=== PATIENT | male | born 1945 | race Caucasian/White ===

== ENCOUNTER 2018-07-31 00:14 | Day surgery (SDC) | payer MEDICARE, OTHER ==
--- NOTE | 2018-07-30 14:48 | HISTORY AND PHYSICAL ---
DATE OF ADMISSION: July 31, 2018 CHIEF COMPLAINT Right inguinal hernia. HISTORY OF PRESENT ILLNESS Patient is a 73-year-old white male who presented to the Urology Clinic on the 25 of June with a several month history of right groin discomfort and swelling. Patient states the pain and swelling kind of comes and goes throughout the day, but is especially bothersome after physical activity. He denies any change in lower urinary tract symptoms, chronic cough, or constipation. Of note, he did have a left inguinal hernia repair in 2000 with a high ligation of sac in a Bassini-type repair. In 1986, he had a right testis biopsy for adenoid tumor. Physical exam in the clinic revealed a normal urinalysis with a postvoid residual of 51. flow rate 20 mL per second. He had a right inguinal hernia which appeared to be direct in nature. Options were discussed, and he has elected to undergo operative repair. Specific risks of repair were discussed including recurrence of a hernia, hydrocele formation, chronic numbness or discomfort at surgical site, damage to scar formation or adjacent structures including nerve, bowel, vessels, and other structures, as well as possible hematoma formation in the incision site or scrotum. PAST MEDICAL HISTORY 1. Coronary artery disease, status post cardiac stenting. Patient has recently seen Dr. Busby in [place], his estimating manager, and has been given clearance for the upcoming procedure. 2. Hypertension. 3. Hypercholesterolemia. 4. Gastroesophageal reflux disease. 5. Degenerative joint disease. 6. ED. PAST SURGICAL HISTORY 1. Tonsillectomy. 2. Cardiac stenting. 3. Laminectomy in the C- and L-spine. 4. Melanoma excision. 5. Left inguinal hernia repair. 6. Right testis biopsy. 7. Left shoulder repair. SOCIAL HISTORY Patient denies illicit drug use or tobacco use. He lives in [place], [place]. He is . ALLERGIES STATINS, CoA REDUCTASE INHIBITOR TYPE. CURRENT MEDICATIONS 1. Amlodipine. 2. Aspirin. 3. Nexium. 4. Losartan. 5. Bioflex tablet. 6. Atorvastatin. REVIEW OF SYSTEMS Patient denies chest pain, productive cough, fever, chills, nausea, vomiting, change in bowel habits, bleeding disorder, chronic headaches, liver disease, or dyspnea on exertion. PHYSICAL EXAMINATION GENERAL: Patient is a well-developed, well-nourished white male in no acute distress. HEENT: Normocephalic, atraumatic. CHEST: Clear to auscultation bilaterally. CARDIOVASCULAR: Regular rate and rhythm. ABDOMEN: Soft, nontender. No masses are palpated. GENITOURINARY: Deferred to the OR. EXTREMITIES: Without clubbing, cyanosis, or edema. NEUROLOGIC: Nonfocal. IMPRESSION A 73-year-old white male with a right inguinal hernia. PLAN We will perform right inguinal hernia repair. [facility]
[~2018-07-31] VITALS: Ht 172.7 cm; Wt 83.0 kg
[2018-07-31] VITALS (8 sets, daily range): BP systolic 107–143; BP diastolic 58–81
[~2018-07-31 00:14] MED LIST: AMLO-127 PO; ASPI-1471 PO; ATOR10TA65 PO; ESOM40CA42 PO; LOSA50TA80 PO; RUTI1TAB3 PO; focus factor PO
[2018-07-31 06:39] LABS: PLATELET COUNT, AUTOMATED 244 K/uL (150-450)
[2018-07-31] MEDS ORDERED: ceFAZolin(*) 1 GM VIAL 1 GM, GENTAMICIN(*) 80 MG/2 ML VIAL 60 MG in NS 0.9% IRRIGATION ... IR ONE (06:45)
[2018-07-31] MEDS ORDERED: MIDAZOLAM 2 MG/2 ML VIAL IVP PRN (06:45)
[2018-07-31] MEDS ORDERED: ceFAZolin(*) 1 GM VIAL 1 GM in NS(*) 0.9% 100 ML MINI-BAG 100 ML IVPB ONE (06:45)
[2018-07-31] MEDS ORDERED: NORMOSOL R SOLN(*) 1000 ML BAG 1,000 ML IV PRN (06:45)
[2018-07-31] MEDS ORDERED: LIDOCAINE/SOD BICARB 8.4% SYR ID ONE (06:45)
[2018-07-31] MEDS ORDERED: fentaNYL CITR 100 MCG/2 ML AMP ONE ×2 (06:55→11:12)
[2018-07-31] MEDS ORDERED: METOCLOPRAMIDE 10 MG/2 ML SDV ONE (06:55)
[2018-07-31] MEDS ORDERED: LIDOCAINE MPF 1% 5 ML VIAL ONE (06:55)
[2018-07-31] MEDS ORDERED: DEXAMETHASONE SOD 4 MG/ML VIAL ONE (06:55)
[2018-07-31] MEDS ORDERED: ONDANSETRON 4 MG/2 ML VIAL ONE (06:55)
[2018-07-31] MEDS ORDERED: PROPOFOL EMUL(*) 10MG/ML 20 ML 20 ML ONE (06:55)
[2018-07-31] MEDS ORDERED: ROPIVACAINE 0.2% 20 ML VIAL ONE (07:37)
[2018-07-31] MEDS ORDERED: ePHEDrine 25 MG/5 ML DISP.SYR IVP ONE (08:35)
[2018-07-31] MEDS ORDERED: KETOROLAC 30 MG/ML VIAL ONE (10:03)
[2018-07-31] MEDS ORDERED: OXYC-865 PO (10:48)
[2018-07-31] MEDS ORDERED: IBUP600T22 PO ×2 (10:51→10:52)
[2018-07-31] MEDS ORDERED: DOCU-416 PO (10:52)
--- NOTE | 2018-07-31 11:23 | OPERATIVE REPORT 1 ---
EVENT DATE: July 31, 2018 SURGEON: Linden Madrigal MD ANESTHESIOLOGIST: Ike Ferris MD ANESTHESIA: General. PREOPERATIVE DIAGNOSIS Right inguinal hernia. POSTOPERATIVE DIAGNOSES 1. Right direct inguinal hernia. 2. Right indirect inguinal hernia. PROCEDURE PERFORMED 1. Right indirect inguinal hernia repair with high ligation of sac. 2. Right direct inguinal hernia repair using David technique with mesh. ESTIMATED BLOOD LOSS 20 cc. IV FLUIDS Crystalloids. DRAINS None. COMPLICATIONS None. PATHOLOGY Indirect hernia sac for permanent analysis. COMPLICATIONS None. CONDITION The patient is taken to the recovery room awake and in stable condition. STATEMENT OF MEDICAL NECESSITY Patient is a 73-year-old white male who presented to Urology Clinic with several month history of right groin pain and intermittent swelling. Physical exam revealed reducible hernia. He has opted for surgical repair and now brought to the operating room for above planned procedure. DESCRIPTION OF OPERATION PERFORMED The patient was brought to the operating room. After general anesthetic was obtained. he was placed supine on the operating room table and prepped and draped in the usual sterile manner. A 4 cm skin incision was made just superior to the pubic tubercle and proceeded superior laterally along the lines of Langerhans with the #15 blade knife. This was taken down to the subcutaneous tissue with electrocautery until the aponeurosis of the external oblique was encountered. This was then incised parallel with its fibers to expose the inguinal contents. The cord was isolated at the pubic tubercle. Cremasteric fibers were removed from surrounding the cord down to the internal ring. An indirect hernia sac was identified, which proceeded along the cord to approximately the external ring area. This was dissected off the vas and vessels down into the internal canal. It was then opened and inspected. There were no intraperitoneal contents identified. It was then twisted upon itself and doubly cross-clamped with a running 0 clamp. The cord was then removed sharply and the end was fulgurated. A 2-0 silk ligature type was placed on the end followed by free tie. After release of the second right inguinal, the stump projected nicely into the internal ring. At this point, the floor was inspected and found to have extremely attenuated floor, primarily in the mid area. Therefore, at this point, a piece of mesh was opened and measured and shaped into position with the medial aspect being tapered and a lateral incision to wrap around the cord. This mesh was secured in place using interrupted and running 2-0 PDS stitch starting at the pubic tubercle and proceeding up superior medially on the transversalis fascia and inferior laterally along the inguinal ligament. The tails were secured to the lateral aspect of the cord to complete the closure. At this point, a copious amount of antibiotic solution were used to irrigate the wound. 0.25% ropivacaine was given along the cord and the skin edge. At this point, the aponeurosis of the external oblique was closed with a running 2-0 Vicryl. The subcutaneous tissues were reapproximated with interrupted 3-0 chromic and the skin was closed with running 4-0 subcuticular Vicryl stitch. Skin adhesive was placed along the skin edge and a sterile dressing was applied with a scrotal support. The patient was awakened in the operating room and taken to the recovery area in stable condition. PLAN We will allow the patient to be discharged home today on Percocet alternating with Motrin and Colace. He is to return to the Urology Clinic in approximately six weeks for followup exam. He is to use a scrotal support and ice for the next 36 hours. GENARO
--- NOTE | 2018-07-31 13:08 | NUR ---
1205 SBAR REPORT WAS RECEIVED FROM Cali MARIE RN. PATIENT ARRIVED ON 1 LITER NASAL CANNULA. LUNGS ARE CLEAR. BOWEL SOUNDS ARE HYPERACTIVE. PATIENT STATES PAIN IS 4/10. HE HAS MESH UNDERWEAR WITH GAUZE PRESSING AGAINST INCISION. DRESSING REMAINS DRY AND INTACT. ICE APPLIED TO INCISION 1211 PATIENT WAS MOVED TO ROOM AIR 1220 PATIENT BEGAN DRINKING SHMUEL YESSI AND EATING JELLO 1235 FINISHED GOING OVER DC INSTRUCTIONS. PATIENT AND VERBALIZED UNDERSTANDING. 1243 PATIENT BEGAN DOING ORTHOSTATICS. HE DENIES ANY DIZZINESS OR LIGHTHEADEDNESS 1244 PATIENT BEGAN STANDING. HE WAS STABLE ON HIS FEET [address] [place] [address] PATIENT WAS ABLE TO VOID WITH DIFFICULTIES 1255 PATIENT STATED HE WANTED TO LET THE PAIN PILL KICK IN SOME. HE STATES HIS PAIN IS 6/10. HE WAS MOVED IN THE RECLINER.
--- NOTE | 2018-07-31 13:33 | NUR ---
6371 PATIENT DID NOT TAKE 2ND PAIN PILL BUT STATED HE WANTED TO HAVE ONE TO MAKE IT HOME JUST IN CASE
--- NOTE | 2018-07-31 13:45 | NUR ---
1340 IV WAS DC'D WITH CATH INTACT 1345 PATIENT WAS TAKEN OUT VIA WHEELCHAIR. HE STATES HIS PAIN IS 4/10. DRESSING REMAINS DRY AND INTACT. LUNGS ARE CLEAR. BOWEL SOUNDS ARE HYPERACTIVE. SEE DISCHARGE ASSESSMENT.
== END 2018-07-31 11:30 | disposition home or self-care (01) ==
LOC: OR 00:14
PROVIDERS: ATTEND Urology
DX: K40.90 Unilateral inguinal hernia, without obstruction or gangrene, not specified as recurrent (principal)
CPT/HCPCS: 49505; 81001; 85025; 88302; A9270; C1781; J0690; J1100; J1580; J1885; J2001; J2250; J2405; J2704; J2765; J2795; J3010; 82040; 82247; 82310; 82374; 82435; 82565; 82947; 84075; 84132; 84155; 84295; 84450; 84460; 84520